=== PATIENT | female | born 1935 | race Caucasian/White ===

== ENCOUNTER 2017-03-03 06:29 | Observation (INO) | payer OTHER ==
[~2017-03-03] VITALS: Ht 149.9 cm; Wt 51.8 kg
[2017-03-03] VITALS (40 sets, daily range): BP systolic 90–159; BP diastolic 47–75; PULSE 61–102; RESP 11–44; Ht 149.9 cm; Wt 51.8 kg
[2017-03-03] MEDS ORDERED: CLOP75TA27 PO (07:24)
[2017-03-03] MEDS ORDERED: ASPI325T4 PO (07:24)
[2017-03-03] MEDS ORDERED: DAPA10TA PO (07:24)
[2017-03-03] MEDS ORDERED: FURO40TA4 PO (07:24)
[2017-03-03] MEDS ORDERED: LISI2.5T59 PO (07:24)
[2017-03-03] MEDS ORDERED: CARV3.1260 PO (07:24)
[2017-03-03 07:41] LABS: ABNORMAL IP MESSAGE 1; BASOPHIL # 0.1 10^3/ul (0.0-0.1); EOSINOPHILS # 0.7 10^3/ul (0.0-0.5); HEMATOCRIT 38.3 % (37.0-47.0); LYMPHOCYTES # 0.5 10^3/ul (0.8-2.9); LYMPHOCYTES % 10.3 % (15.0-51.0); MEAN CORPUSCULAR HGB CONC 31.3 g/dl (32.0-37.0); MEAN CORPUSCULAR VOLUME 95.8 fl (82.0-101.0); MEAN PLATELET VOLUME 11.9 fl (7.4-10.4); MONOCYTE # 0.5 10^3/ul (0.3-0.9); MONOCYTES % 10.1 % (0.0-11.0); NEUTROPHIL # 3.1 10^3/ul (1.6-7.5); NEUTROPHILS % 64.4 % (39.0-77.0); PLATELET COUNT 220 10^3/UL (140-415); RED CELL DISTRIBUTION WIDTH 15.7 % (11.5-14.5); WHITE BLOOD COUNT 4.9 10^3/ul (4.8-10.8)
[2017-03-03 07:43] LABS: POSITIVE DIFF @See below
--- NOTE | 2017-03-03 07:43 | RADRPT ---
PROCEDURE: XR Chest. TECHNIQUE: Single frontal radiograph. CLINICAL INDICATION: aicd placement COMPARISON: None. FINDINGS: There is cardiomegaly with aortic calcifications. No focal consolidation, pneumothorax, or pleural e ffusions. IMPRESSION: No acute cardiopulmonary process. Cardiomegaly with aortic calcifications. RPTAT: EE .Pete Bergeron MD, MD Date Time Electronically viewed and signed by .Pete Bergeron MD, MD on 03/03/2017 07:49 .C/
[2017-03-03 07:57] LABS: ALBUMIN 3.8 g/dl (3.3-4.9); ALBUMIN/GLOBULIN RATIO 1.65; BILIRUBIN,INDIRECT 0.2 mg/dl (0-1.1); BILIRUBIN,TOTAL 0.2 mg/dl (0.2-1.3); CHOL/HDL RATIO 3.1 RATIO; TOTAL PROTEIN 6.1 g/dl (6.1-8.1)
[2017-03-03] MEDS ORDERED: PROPOFOL 100 ML ONE (08:00)
[2017-03-03 08:02] LABS: INR 1.02; PROTIME 13.4 Sec (12.2-14.2)
[2017-03-03 08:03] LABS: PARTIAL THROMBOPLASTIN TIME 27.5 Sec (25.0-35.0)
[2017-03-03] MEDS ORDERED: LIDOCAINE 1% (MDV) 20 ML INJ ONE (08:13)
[2017-03-03] MEDS ORDERED: CEFAZOLIN 1 GM/50 ML (PMX) 100 ML IVPB ONE (08:13)
[2017-03-03] MEDS ORDERED: LIDOCAINE 1%/EPI 30 ML INJ ONE ×2 (08:15→09:13)
[2017-03-03 08:22] LABS: CREATININE 0.9 mg/dl (0.44-1.00); POTASSIUM 4.3 mmol/L (3.5-5.1)
--- NOTE | 2017-03-03 10:44 | OPR ---
Date/Time of Note Date/Time of Note DATE: 03/03/17 TIME: 10:41 Operative Report Procedure Date: Mar 03, 2017 Preoperative Diagnosis CHF. severe ischemic cardiomyopathy Postoperative Diagnosis same Surgeon see signature line Vegetable Farmer NA Anesthesia Type: other Estimated Blood Loss: minimal Transfusion none Specimen none Grafts/Implants none Complications none Procedure Description Operative\Procedure NOTE: Procedure performed: Implantation of single-chamber ICD using a [employer] device Left subclavian venogram and radiological interpretations Fluoroscopy and supervision Intracardiac electrocardiogram and defibrillator threshold testing. Indication: CHF and severe cardiomyopathy. Patient meets SCD-Heft and MADIT criteria for ICD placement for primary prevention of SCD. Anesthesia: Per anesthesiologist Customizer: Ary Santizo MD Procedure in detail: Written informed consent was obtained after risks benefits and alternatives discussed with the patient and family in detail. Risks including but not limited to risk of infection, bleeding complications, anesthesia related complications, NV, CVA, perforation, pneumothorax hemothorax, etc discussed with pt in detail. Patient was brought into into the [facility] and placed in supine position. sedation was given. Right and left chest area was prepped and draped in regular sterile fashion. [] Left subclavian venogram was performed that showed patent subclavian vein and a small cephalic vein. AC groove area was anesthetized using 1% lidocaine with epi. A 4 cm incision was made in the AC groove area. Blunt dissection was carried out. Cephalic vein was isolated. It was cannulated using a micropuncture needle and an 0.14 wire was advanced through into the inferior vena cava. Micropuncture sheath was placed over it. 0.14 wire was removed and a J-wire was advanced through it. Then the micropuncture sheath was removed and a 8 Sinhala sheath was placed over into the cephalic vein. RV ICD lead was advanced under direct fluoroscopy and placed in the apex. Once a good position was found, threshold was checked which showed excellent threshold. It was screwed into place and threshold were checked again which showed good injury pattern and no diaphragmatic stimulation at 10 V an excellent thresholds. Then the sheath was peeled away. lead was tied down using 0 Ethibond suture. Pocket was irrigated with antibiotic solution. The lead was checked again which showed good thresholds. Then lead was connected into the device. Device was placed into the pocket and sutured using 0 Ethibond suture. At this point if defibrillator threshold testing was performed. First external defibrillator was checked as 1 J. Then through the device patient was induced into V. fib using the method of shock on T. The device appropriately detected the V. fib and successfully cardioverted the patient back into sinus/paced rhythm at 17.5 J. Pocket was irrigated again using antibiotic solution. Wound was closed with 1 layer of 2.0 Vicryl and 2 layers of 3.0 Vicryl. Steri- Strip was applied and pressure dressing was applied. Patient tolerated procedure well with no complication and was transferred to the recovery room in stable condition. Immediate complication: none Please see physical chart for details regarding pacemaker information and thresholds. Conclusions: Successful implantation of single-chamber ICD and defibrillator threshold testing. ARY SNATIZO MD [facility] ARY SANTIZO MD Mar 03, 2017 10:44
[2017-03-03] MEDS ORDERED: morphine (1 MG/ML) 10ML SYRINGE IV PRN ×2 (11:00)
[2017-03-03] MEDS ORDERED: ACETAMINOPHEN 325 MG TAB PO PRN (11:00)
[2017-03-03] MEDS ORDERED: EPHEDrine SULFATE 50 MG/5 ML SYG IV PRN (11:00)
[2017-03-03] MEDS ORDERED: FENTAnyl 50 MCG/ML VIAL IV PRN ×2 (11:00)
[2017-03-03] MEDS ORDERED: LABETALOL HCL 20MG INJ IV PRN (11:00)
[2017-03-03] MEDS ORDERED: KETOROLAC 30 MG INJ IV PRN (11:00)
[2017-03-03] MEDS ORDERED: hydrALAzine 20 MG INJ IV PRN (11:00)
[2017-03-03] MEDS ORDERED: OXYCODONE/ACETAMINOPHEN (5/325) TAB PO PRN (11:00)
[2017-03-03] MEDS ORDERED: ONDANSETRON 4 MG INJ IV PRN ×2 (11:00)
[2017-03-03] MEDS ORDERED: morphine 2 MG INJ IV PRN (11:00)
[2017-03-03] MEDS: DIPHENHYDRAMINE 50 MG INJ IV PRN ×2 (11:43→13:17)
--- NOTE | 2017-03-03 11:49 | RADRPT ---
PROCEDURE: XR Chest. CLINICAL INDICATION: Pacemaker placement. TECHNIQUE: Single frontal view. COMPARISON: 03/03/2017. FINDINGS: The lungs are clear. The heart size is normal. There is calcification in the aorta consistent with atherosclerosis. Ther e is a left-sided single lead permanent pacemaker/internal cardiac defibrillator. There is no pleural effusion. There is no pneumothorax. IMPRESSION: 1. Atherosclerosis. 2. Permanent pacemaker/AICD. 3. No pneumothorax. 4. Otherwise unremarkable chest radiograph. RPTAT: QQ .Wong Galdamez MD, MD Date Time Electronically viewed and signed by .Wong Galdamez MD, MD on 03/03/2017 11:49 .R/
--- NOTE | 2017-03-03 13:21 | RADRPT ---
Vent Rate: 78 bpm RR Interval: 0 msec NE Interval: 182 msec QRS Duration: 92 msec QT Interval: 430 msec QTC Interval: 490 msec P-R-T [place]: 57 - -42 - 74 degrees Normal sinus rhythm Left axis deviation Incomplete right bundle branch block Inferior infarct , age undetermined Anterior infarct , age undetermined Abnormal ECG Electronically Signed By: Tony Olivares [id number]
--- NOTE | 2017-03-03 13:22 | RADRPT ---
Vent Rate: 61 bpm RR Interval: 0 msec IN Interval: 196 msec QRS Duration: 86 msec QT Interval: 424 msec QTC Interval: 426 msec P-R-T [place]: 51 - 25 - 88 degrees Normal sinus rhythm RSR apos; orattern in V1 suggests right ventricular conduction delay Anteroseptal infarct , age undetermined Abnormal ECG Electronically Signed By: Tony Olivares [id number]
[2017-03-03] MEDS: CEFAZOLIN 1 GM/50 ML (PMX) 50 ML IVPB SCH ×2 (14:54→23:02)
[2017-03-04] VITALS (7 sets, daily range): BP systolic 103–150; BP diastolic 57–70; PULSE 66–75; RESP 16–18
[2017-03-04] MEDS: CEFAZOLIN 1 GM/50 ML (PMX) 50 ML IVPB SCH (06:51)
[2017-03-04] MEDS ORDERED: CLOPIDOGREL 75 MG TAB PO SCH (09:00)
[2017-03-04] MEDS ORDERED: FUROSEMIDE 40 MG TAB PO SCH (09:00)
[2017-03-04] MEDS ORDERED: LISINOPRIL 5 MG TAB PO SCH (09:00)
[2017-03-04 09:24] LABS: ABNORMAL IP MESSAGE 1; BASOPHILS % 0.5 % (0.0-2.0); EOSINOPHILS # 0.2 10^3/ul (0.0-0.5); EOSINOPHILS % 3.8 % (0.0-7.0); HEMATOCRIT 36.3 % (37.0-47.0); HEMOGLOBIN 11.3 g/dl (12.0-16.0); LYMPHOCYTES # 0.4 10^3/ul (0.8-2.9); LYMPHOCYTES % 7.7 % (15.0-51.0); MEAN CORPUSCULAR HEMOGLOBIN 29.7 pg (29.0-33.0); MEAN CORPUSCULAR HGB CONC 31.1 g/dl (32.0-37.0); MEAN CORPUSCULAR VOLUME 95.5 fl (82.0-101.0); MONOCYTE # 0.4 10^3/ul (0.3-0.9); MONOCYTES % 6.1 % (0.0-11.0); NEUTROPHIL # 4.7 10^3/ul (1.6-7.5); NEUTROPHILS % 81.6 % (39.0-77.0); PLATELET COUNT 168 10^3/UL (140-415); WHITE BLOOD COUNT 5.7 10^3/ul (4.8-10.8)
[2017-03-04 10:12] LABS: ALBUMIN 2.9 g/dl (3.3-4.9); ALBUMIN/GLOBULIN RATIO 1.26; BILIRUBIN,INDIRECT 0.3 mg/dl (0-1.1); BILIRUBIN,TOTAL 0.3 mg/dl (0.2-1.3); CALCIUM 8.3 mg/dl (8.4-10.2); CREATININE 0.87 mg/dl (0.44-1.00); MAGNESIUM 2.2 mg/dl (1.7-2.5); POTASSIUM 4.1 mmol/L (3.5-5.1); TOTAL PROTEIN 5.2 g/dl (6.1-8.1)
--- NOTE | 2017-03-04 10:53 | CONS ---
Date/Time of Note Date/Time of Note DATE: 03/04/17 TIME: 10:50 Consult Date/Type/Reason Admit Date/Time Mar 03, 2017 at 10:39 Initial Consult Date Subjective s: no chest pain no sob. no PND orthopnea : General: no acute distress HEENT: NC/AT. pupils are equal. round. NECK: NO JVD. no stridor. CV: RRR. systolic murmur; no gallop or rubs. PULM: no wheezing or rhonchi. GI: SOFT, NT, ND, no rebound or guarding Extremity: trace B/L LE edema. no clubbing. neuro: awake and alert, OX3. Psych: calm and pleasant chest: no hematoma or bleeding. s/p ICD CXR reviewed. Objective Vital Signs Date Time Temp Pulse Resp B/P Pulse Ox O2 Delivery O2 Flow Rate FiO2 03/04/17 08:40 69 03/04/17 07:48 98.1 18 121/60 94 03/04/17 07:44 Nasal Cannula 2.0 Intake and Output 03/03/17 03/03/17 03/04/17 15:00 23:00 07:00 Intake Total 480 ml 300 ml Balance 480 ml 300 ml Results/Medications Result Diagram: 03/04/17 0819 03/04/17 0819 Results 24 hrs Laboratory Tests Test 03/04/17 08:19 White Blood Count 5.7 Red Blood Count 3.80 L Hemoglobin 11.3 L Hematocrit 36.3 L Mean Corpuscular Volume 95.5 Mean Corpuscular Hemoglobin 29.7 Mean Corpuscular Hemoglobin Concent 31.1 L Red Cell Distribution Width 16.0 H Platelet Count 168 # Mean Platelet Volume 12.0 H Neutrophils % 81.6 H Lymphocytes % 7.7 L Monocytes % 6.1 Eosinophils % 3.8 Basophils % 0.5 Nucleated Red Blood Cells % 0.0 Neutrophils # 4.7 Lymphocytes # 0.4 L Monocytes # 0.4 Eosinophils # 0.2 Basophils # 0.0 Nucleated Red Blood Cells # 0.0 Sodium Level 147 H Potassium Level 4.1 Chloride Level 113 H Carbon Dioxide Level 25 Anion Gap 13 Blood Urea Nitrogen 16 Creatinine 0.87 Glucose Level 86 Calcium Level 8.3 L Magnesium Level 2.2 Total Bilirubin 0.3 Direct Bilirubin 0.00 Indirect Bilirubin 0.3 Aspartate Amino Transf (AST/SGOT) 18 Alanine Aminotransferase (ALT/SGPT) 21 Alkaline Phosphatase 38 L Creatine Kinase 84 B-Type Natriuretic Peptide 5200 H Total Protein 5.2 L Albumin 2.9 L Globulin 2.30 Albumin/Globulin Ratio 1.26 Medications Current Medications Acetaminophen (Tylenol Tab) 650 mg Q4H PRN PO NON-CARDIAC PAIN LEVEL (1-3); Start 03/03/17 at 11:00 Ondansetron HCl (Zofran Inj) 4 mg Q4H PRN IV NAUSEA AND/OR VOMITING; Start at 11:00 Morphine Sulfate (morphine) 1 mg Q1H PRN IV PAIN; Start 03/03/17 at 11:00 Carvedilol (Coreg) 3.125 mg BID PO Last administered on 03/04/17 08:32; Admin Dose 3.125 MG; Start 03/03/17 at 21:00 Clopidogrel Bisulfate (plaVIX) 75 mg DAILY PO Last administered on 03/04/17 08:31; Admin Dose 75 MG; Start 03/04/17 at 09:00 Furosemide (Lasix) 40 mg DAILY PO Last administered on 03/04/17 08:31; Admin Dose 40 MG; Start 03/04/17 at 09:00 Lisinopril (Zestril) 2.5 mg DAILY PO Last administered on 03/04/17 08:31; Admin Dose 2.5 MG; Start 03/04/17 at 09:00 Assessment/Plan Chief Complaint/Hosp Course 1. CHF 2. Ischemic cardiomyopathy 3/ s/p ICD 4./ CAD 5./ Dyslidpiemia cont current med dc home ICD was interrogated today and personally reviewed with excellent function of device. f/u outpt with ICD check with me in 1-2 weeks ARY BENTON Problems: ARY BENTON MD Mar 04, 2017 10:53
== END 2017-03-04 14:00 | disposition home or self-care (01) ==
LOC: SDS 06:29 → REC 10:39 → SDS 10:39 → TEL 15:25
PROVIDERS: ADMIT Internal Medicine Interventional Cardiology; ATTEND Internal Medicine Interventional Cardiology
DX: I25.5 Ischemic cardiomyopathy (principal); I11.0 Hypertensive heart disease with heart failure; I50.9 Heart failure, unspecified; I25.10 Atherosclerotic heart disease of native coronary artery without angina pectoris; E78.5 Hyperlipidemia, unspecified; I25.2 Old myocardial infarction
CPT/HCPCS: 33249; 71010; 80053; 80061; 82550; 82962; 83735; 83880; 85025; 85610; 85730; 93005; C1722; C1895; G0378; J0690; J1200; J1644; J3010